=== PATIENT | female | born 1980 | race Caucasian/White ===

== ENCOUNTER 2022-01-31 11:13 | Outpatient (REF) | payer OTHER, SELFPAY ==
--- NOTE | ~2022-01-31 | XR_ITS ---
EXAMINATION: XR SHOULDER, RIGHT CLINICAL INFORMATION: Right shoulder pain COMPARISON: None TECHNIQUE: Right shoulder is imaged in 4 views. FINDINGS: No fracture, dislocation, destructive process. No visible rotator cuff calcifications. The glenohumeral joint appears normal. The acromioclavicular alignment is normal. Right lung apex is clear. XR/XR shoulder RT min 2V IMPRESSION: Normal right shoulder.
== END 2022-01-31 11:14 | disposition home or self-care (01) ==
LOC: HO.XRAY 11:13
PROVIDERS: PCP Nurse Practitioner Family; Visit Provider Internal Medicine Rheumatology
DX: M79.7 Fibromyalgia (principal); G56.03 Carpal tunnel syndrome, bilateral upper limbs; M25.511 Pain in right shoulder; Z96.659 Presence of unspecified artificial knee joint
CPT/HCPCS: 73030; 99212

== ENCOUNTER → 2022-02-20 11:05 | Outpatient (BNVA) | payer OTHER, SELFPAY | PROVIDERS: PCP Internal Medicine Rheumatology; Visit Provider Internal Medicine Rheumatology | DX: M75.81 Other shoulder lesions, right shoulder (principal) | CPT/HCPCS: 20610 ==

== ENCOUNTER 2022-07-10 09:24 | Outpatient (REF) | payer OTHER, SELFPAY ==
[2022-07-10 11:23] LABS: C Reactive Protein 3.32 mg/dL (< or = 0.50)
[2022-07-10 11:26] LABS: Erythrocyte Sedimentation Rate 25 MM/HR (0-20)
[2022-07-10 12:42] LABS: Creatinine Urine 36.48 mg/dL; Total Protein Urine Random < 7 mg/dL (<12)
[2022-07-16 13:37] LABS: Anti DNA DS Antibody 1 IU/mL; SM/Ribonucleoprotein Ab <1.0 NEG AI (<1.0 NEG); Smith Protein <1.0 NEG AI (<1.0 NEG)
== END 2022-07-10 09:25 | disposition home or self-care (01) ==
LOC: HO.10HDL 09:24
PROVIDERS: Visit Provider Internal Medicine Rheumatology
DX: M75.81 Other shoulder lesions, right shoulder (principal); R76.8 Other specified abnormal immunological findings in serum; M79.7 Fibromyalgia; Z96.659 Presence of unspecified artificial knee joint
CPT/HCPCS: 20610; 36415; 84156; 85652; 86140; 86225; 86235; 99212

== ENCOUNTER → 2022-10-30 08:37 | Outpatient (BNVA) | payer OTHER, SELFPAY | PROVIDERS: PCP Nurse Practitioner Family; Visit Provider Internal Medicine Rheumatology | DX: M79.7 Fibromyalgia (principal); M75.81 Other shoulder lesions, right shoulder | CPT/HCPCS: 99212 ==

== ENCOUNTER 2022-11-29 15:05 | Outpatient (REF) | payer OTHER, SELFPAY ==
--- NOTE | ~2022-11-29 | MR_ITS ---
EXAMINATION: MR SHOULDER WITHOUT CONTRAST, RIGHT CLINICAL INFORMATION: M75.81 - Other shoulder lesions, right shoulder. Painful ROM shoulder; not improving with 2 corticosteroid injections COMPARISON: Radiographs dated 01/31/2022 TECHNIQUE: MRI of the shoulder without contrast was performed on a high-field scanner. FINDINGS: ROTATOR CUFF: There is mild supraspinatus and infraspinatus tendinosis characterized by tendon thickening and intermediate signal intensity. No tears. Subscapularis tendon is normal. No muscle atrophy or fatty infiltration. BICEPS: Normal. CORACOACROMIAL ARCH: The undersurface of the acromion is curved with no subacromial spur. The acromioclavicular joint is normal. No bursitis. LABRUM/CAPSULE: There is abnormal linear increased T2 signal in the glenoid labrum posterosuperiorly between the 12 o'clock position and the 10 o'clock position, most concerning for a type II SLAP tear. No biceps tendon involvement. Labrum is otherwise intact. Joint capsule is normal. GLENOHUMERAL JOINT/MARROW: Normal. MR/MR shoulder RT wo con IMPRESSION: 1. Mild supraspinatus and infraspinatus tendinosis. No rotator cuff tears. 2. Probable type II SLAP tear.
== END 2022-11-29 15:06 | disposition home or self-care (01) ==
LOC: HO.MRI 15:05
PROVIDERS: PCP Nurse Practitioner Family; Visit Provider Internal Medicine Rheumatology
DX: M75.81 Other shoulder lesions, right shoulder (principal)
CPT/HCPCS: 73221

== ENCOUNTER → 2022-12-14 11:16 | Outpatient (BNVA) | payer OTHER, SELFPAY | PROVIDERS: PCP Nurse Practitioner Family; Visit Provider Orthopaedic Surgery | DX: S43.431A Superior glenoid labrum lesion of right shoulder, initial encounter (principal); X50.3XXA Overexertion from repetitive movements, initial encounter; Y93.9 Activity, unspecified; Y92.9 Unspecified place or not applicable; Y99.8 Other external cause status; E11.9 Type 2 diabetes mellitus without complications; Z96.651 Presence of right artificial knee joint | CPT/HCPCS: 99212 ==

== ENCOUNTER 2022-12-17 13:34 | Outpatient (REF) | payer OTHER, SELFPAY ==
[2022-12-17 14:10] LABS: Hematocrit 41.4 % (37.0-47.0); Hemoglobin 13.7 g/dl (12.0-16.0); Mean Corpuscular HGB Conc 33.1 g/dl (31.0-35.0); Mean Corpuscular Volume 84.5 fL (80.0-98.0); Mean Platelet Volume 9.3 fL (9.4-12.3); Platelet Count 263 X10*3/uL (160-400); Red Cell Distribution Width 14.9 % (11.0-16.0); White Blood Count 12.3 X10*3/uL (4.8-10.8)
== END 2022-12-17 13:35 | disposition home or self-care (01) ==
LOC: HO.LAB 13:34
PROVIDERS: PCP Nurse Practitioner Family; Visit Provider Psychiatry & Neurology Neurology
DX: M79.7 Fibromyalgia (principal)
CPT/HCPCS: 36415; 85027

== ENCOUNTER → 2023-01-14 12:35 | Outpatient (BNVA) | payer OTHER, SELFPAY | PROVIDERS: PCP Nurse Practitioner Family; Visit Provider Orthopaedic Surgery | DX: Z01.818 Encounter for other preprocedural examination (principal); S43.431A Superior glenoid labrum lesion of right shoulder, initial encounter; E11.9 Type 2 diabetes mellitus without complications; Z96.651 Presence of right artificial knee joint | CPT/HCPCS: 99212 ==

== ENCOUNTER 2023-01-23 06:33 | Day surgery (SDC) | payer OTHER, SELFPAY ==
[2023-01-21 09:04] VITALS: BMI 41.9
[2023-01-21 09:28] VITALS: BMI 41.9
--- NOTE | 2023-01-22 09:27 | P.CONAN_ITS ---
Documented by User: Irena Suarez NP 01/22/23 09:40 HPI - Anesthesia Eval Consult details Narrative: 42yo F for Right shoulder Bicep Tendon Repair - Distal Dilated CMP. Follows [facility] cardiology. Last office eval 06/2022. Cardiac stable. Echo updated 09/2022 with EF 50-55%. [facility] Active Problems Active Problems: All Active Problems (Updated 01/21/23 @ 09:27 by Purnima Monsalve RN) Fibromyalgia (Acute) History of knee replacement, total (Acute) Bilateral carpal tunnel syndrome (Acute) PCOS (polycystic ovarian syndrome) (Acute) Morbid obesity (Acute) Dilated cardiomyopathy (Acute) Right rotator cuff tendonitis (Acute) [place] positive (Acute) SLAP lesion of right shoulder (Acute) History of total right knee replacement (Acute) Past Medical History Medical History (Updated 01/21/23 @ 09:53 by Purnima Monsalve RN) Dilated cardiomyopathy Fibromyalgia PCOS (polycystic ovarian syndrome) Surgical History Surgical History (Updated 01/21/23 @ 09:27 by Purnima Monsalve RN) History of bunionectomy History of carpal tunnel release History of total right knee replacement Hx of section Hx of knee surgery Hx of tonsillectomy Hx of tubal ligation Social History Social History Household Members: Family Housing: House Are you a primary farm or ranch animal caretaker to a significant other at home: No Do you presently have visiting nurse or other home services: No 75 years or older and lives alone: No Alcohol intake: never Patient Tobacco Use Status: Current everyday Tobacco user Tobacco use type: Cigarette Cigarettes Per Day: 15 Years Smoked: 23 e-Cigarette/Vaping Use: Never Used service: No Current occupational status: employed 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 Allergies Allergy/AdvReac Type Severity Reaction Status Date / Time hydrocodone Allergy Severe nausea, Verified 01/23/23 06:51 vomiting, dizziness Home Medications Medication Instructions Recorded Confirmed Last Taken Type carvedilol 6.25 mg tablet 6.25 mg PO BID 01/31/22 01/23/23 01/23/23 05:00 History cetirizine 10 mg tablet (All Day 10 mg PO DAILY 01/31/22 01/23/23 Unknown History Allergy (cetirizine)) duloxetine 60 mg capsule,delayed 60 mg PO DAILY 01/31/22 01/23/23 Unknown History release (Cymbalta) empagliflozin 10 mg tablet 10 mg PO DAILY 01/31/22 01/23/23 Unknown History (Jardiance) ibuprofen 600 mg tablet 600 mg PO Q8H PRN Pain 01/31/22 01/23/23 12/23/22 History medroxyprogesterone 150 mg/mL 150 mg IM [id number] 01/31/22 01/23/23 Unknown History intramuscular suspension (Depo-Provera) metformin 750 mg tablet,extended 750 mg PO BID 01/31/22 01/23/23 Unknown History release 24 hr omeprazole 40 mg capsule,delayed 40 mg PO BID 01/31/22 01/23/23 01/23/23 05:00 History release sacubitril 97 mg-valsartan 103 mg 1 tab PO BID 01/31/22 01/23/23 01/23/23 05:00 History tablet (Entresto) spironolactone 100 mg tablet 100 mg PO DAILY 01/31/22 01/23/23 Unknown History tizanidine 4 mg tablet 4 mg PO Q8H PRN Muscle Spasm 01/31/22 01/23/23 Unknown History trazodone 50 mg tablet 25 mg PO BEDTIME 01/31/22 01/23/23 Unknown History rosuvastatin 5 mg tablet 10 mg PO DAILY 02/20/22 01/23/23 Unknown History furosemide 40 mg tablet 60 mg PO DAILY 07/10/22 01/23/23 Unknown History Exam Exam Date and Time: January 22, 2023 0927 Height,Weight and Vital Signs: Height 5 ft 2 in Weight 103.873 kg Pertinent Lab Results Pertinent Lab Results: Laboratory Tests 12/17/22 13:43 WBC 12.3 H Hgb 13.7 Hct 41.4 Plt Count 263 Narrative Narrative: ECHO 09/2022 LV nml in size, wall thickness and systolic function EF 50-55%. No definitive WMA. Nml diastolic function. RV is nml in size and function PASP wnl. EKG 10/2021 ST @ 106 otherwise nml Assessment and Plan Assessment Anesthesia Assessment: Chart Reviewed Documented by User: Sathish Spicer MD 01/23/23 15:02 [facility] Past Medical History Medical History (Updated 01/21/23 @ 09:53 by Purnima Monsalve RN) Dilated cardiomyopathy Fibromyalgia PCOS (polycystic ovarian syndrome) Functional capacity: independent ambulation Family History Family history of problems with anesthesia: Yes (aunt has problems with anesthesia, patient not sure about exact problem ) Surgical History Surgical History (Updated 01/21/23 @ 09:27 by Purnima Monsalve RN) History of bunionectomy History of carpal tunnel release History of total right knee replacement Hx of section Hx of knee surgery Hx of tonsillectomy Hx of tubal ligation History of Problems with Anesthesia: No Social History Social History Household Members: Family Housing: House Are you a primary farm or ranch animal caretaker to a significant other at home: No Do you presently have visiting nurse or other home services: No 75 years or older and lives alone: No Alcohol intake: never Patient Tobacco Use Status: Current everyday Tobacco user Tobacco use type: Cigarette Cigarettes Per Day: 15 Years Smoked: 23 e-Cigarette/Vaping Use: Never Used service: No Current occupational status: employed 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 Allergies Allergy/AdvReac Type Severity Reaction Status Date / Time hydrocodone Allergy Severe nausea, Verified 01/23/23 06:51 vomiting, dizziness Home Medications Medication Instructions Recorded Confirmed Last Taken Type carvedilol 6.25 mg tablet 6.25 mg PO BID 01/31/22 01/23/23 01/23/23 05:00 History cetirizine 10 mg tablet (All Day 10 mg PO DAILY 01/31/22 01/23/23 Unknown History Allergy (cetirizine)) duloxetine 60 mg capsule,delayed 60 mg PO DAILY 01/31/22 01/23/23 Unknown History release (Cymbalta) empagliflozin 10 mg tablet 10 mg PO DAILY 01/31/22 01/23/23 Unknown History (Jardiance) ibuprofen 600 mg tablet 600 mg PO Q8H PRN Pain 01/31/22 01/23/23 12/23/22 History medroxyprogesterone 150 mg/mL 150 mg IM [id number] 01/31/22 01/23/23 Unknown History intramuscular suspension (Depo-Provera) metformin 750 mg tablet,extended 750 mg PO BID 01/31/22 01/23/23 Unknown History release 24 hr omeprazole 40 mg capsule,delayed 40 mg PO BID 01/31/22 01/23/23 01/23/23 05:00 History release sacubitril 97 mg-valsartan 103 mg 1 tab PO BID 01/31/22 01/23/23 01/23/23 05:00 History tablet (Entresto) spironolactone 100 mg tablet 100 mg PO DAILY 01/31/22 01/23/23 Unknown History tizanidine 4 mg tablet 4 mg PO Q8H PRN Muscle Spasm 01/31/22 01/23/23 Unknown History trazodone 50 mg tablet 25 mg PO BEDTIME 01/31/22 01/23/23 Unknown History rosuvastatin 5 mg tablet 10 mg PO DAILY 02/20/22 01/23/23 Unknown History furosemide 40 mg tablet 60 mg PO DAILY 07/10/22 01/23/23 Unknown History Exam Airway Mallampati Class: IV Neck ROM: Full Loose/Missing/Broken Teeth: Yes Assessment and Plan Assessment Anesthesia Assessment: Anesthesia Plan Discussed Final Anesthetic Review Family History of Problems with Anesthesia: Yes (aunt has problems with anesthesia, patient not sure about exact problem ) History of Problems with Anesthesia: No ASA Class: III Final Preanesthetic Review: Meds/Allgs Chart Reviewed, Consent Obtained/Reviewed and Anes Risks/Benef Reviewed Patient Risk: Intermediate Procedure Risk: Intermediate Anesthetic Plan Anesthetic Plan: GA, Regional Block and Agree w/ Assess. and Plan Disposition: Standard PACU
[2023-01-23] VITALS (11 sets, daily range): BP systolic 101–122; BP diastolic 61–82; PULSE 70–83; RESP 16–30; TEMP 36.1–36.6; O2SAT 93–98
[2023-01-23] MEDS: Lactated Ringers 1,000 ML 50 ML IVCONT (07:12)
--- NOTE | 2023-01-23 07:34 | MHC.SHP ---
Pre-Procedural Eval Section A Date of Service: 01/23/23 The patient is an INPATIENT: No Changes since office visit: No Cold of Flu in the past 2 weeks, No New Medical Problems, No Changes in Medication and No Patient answered all questions The History & Physical has been completed within 30 days and I have reviewed it.: Yes Section B Chief Complaint: Superior glenoid labrum lesion of right shoulder, Allergies: Allergies Allergy/AdvReac Type Severity Reaction Status Date / Time hydrocodone Allergy Severe nausea, Verified 01/23/23 06:51 vomiting, dizziness Plan I have reviewed the history and physical and performed a pertinent physical examination on my patient. No changes have occurred unless specified. Time Spent With Patient Time: Total time managing care of this patient today ____ minutes.
--- NOTE | 2023-01-23 10:11 | PM.OP ---
Brief Operative Note Date of Service: 01/23/23 Pre-op diagnosis: right SLAP tear Post-op diagnosis: other (Right rtc tear and right SLAP tear) Procedure: Right RTC repair and Biceps tenodesis ( sub-pectoral) Implants: Sinclair and Nephew suture anchor x 2 Arthrex tenodesis button Surgeon: Allan Bueno MD Anesthesia: GETA and regional Was an Rehabilitation Services Aide used for this Procedure?: Yes Rehabilitation Services Aide: Mckenzie Johnston Estimated blood loss (mL): 50 IV fluids (mL): 1,000 Pathology: none sent Condition: stable Disposition: PACU
[2023-01-23] MEDS: HYDROmorphone HCl 0.5 MG/0.5 ML SYRINGE 0.25 MG IVPUSH ×2 (10:39→11:02)
--- NOTE | 2023-01-27 09:57 | P.OP_ITS ---
Operative Note Operative Note Date of Service: 01/23/23 Narrative: Date of Service: 01/23/23 Pre-op diagnosis: right SLAP tear Post-op diagnosis: other (Right rtc tear and right SLAP tear) Procedure: Right RTC repair and Biceps tenodesis ( sub-pectoral) Implants: Sinclair and Nephew suture anchor x 2 Arthrex tenodesis button Surgeon: Allan Bueno MD Anesthesia: GETA and regional Was an Real Estate Appraiser used for this Procedure?: Yes Real Estate Appraiser: Mckenzie Johnston Estimated blood loss (mL): 50 IV fluids (mL): 1,000 Pathology: none sent Condition: stable Disposition: PACU Procedure in detail: Patient was brought to the operating room and placed the the beach chair position. All bony prominences were well padded and the limb was prepped and draped in standard sterile fashion. A time out was called to identify proper site, proper procedure and proper surgeon. IV antibiotics per weight were administered. I began by making a posterolateral stab incision with a 15 blade. A blunt trochar was placed into the glenohumeral joint and I insufflated the joint with saline and a 30 degree arthroscope was placed. I established an outside- in anterior portal just distal to the biceps tendon. I then began my inspection of the glenohumeral joint. There was a type 2 SLAP. The labral anchor was torn without associated degenerative tearing of the labrum anteriorly or posterioly. There were no cartilage changes of the head or glenoid. There was a high grade undersurface tear of the supraspinatus. The subcapularis was intact. I debrided the superior aspect of the glenoid rim under the SLAP tear and tagged and tenotomized the biceps. I then removed the trochar and entered the subacromial space. A direct lateral portal was then established and I performed a bursectomy. The cuff was then examined. There was a high grade bursal tear of the supraspinatus overlying the high grade undersurface tear which had been marked iwth a spinal needle. I then debrided this tissue with a shaver over what was essentially a full thickness tear ( approxiomately 10-20% nl tissue remained. Once a full thickness cuff of tissue was present I placed one medial row double loaded anchor and brought this through the healthy cuff tissue. I then passed these sutures through the torn cuff with a suture passer. The bone bed was debrided down to bleeding bone with a cristofer and I brought all four limbs limbs to one lateral 5.5 anchor. This re- approximated the cuff anatomy near anatomically. Once I was satisfied with the repair final images were captured and I removed all instrumentation. Portals were closed with nylon. Patient was placed in an abduction sling, extubated and brought to the recovery room in stable condition. There were no known complications.
== END 2023-01-23 11:57 | disposition home or self-care (01) ==
PROVIDERS: PCP Nurse Practitioner Family; Visit Provider Orthopaedic Surgery
PROC: (CPT 24341; principal; 2023-01-23 08:40)
DX: S43.431A Superior glenoid labrum lesion of right shoulder, initial encounter (principal); M75.101 Unspecified rotator cuff tear or rupture of right shoulder, not specified as traumatic; X58.XXXA Exposure to other specified factors, initial encounter; Y93.9 Activity, unspecified; Y92.9 Unspecified place or not applicable; Y99.8 Other external cause status; Z88.8 Allergy status to other drugs, medicaments and biological substances; E11.9 Type 2 diabetes mellitus without complications; I42.0 Dilated cardiomyopathy; M79.7 Fibromyalgia; E66.01 Morbid (severe) obesity due to excess calories; Z68.41 Body mass index [BMI] 40.0-44.9, adult; Z96.651 Presence of right artificial knee joint; Z79.84 Long term (current) use of oral hypoglycemic drugs; Z79.899 Other long term (current) drug therapy; F17.210 Nicotine dependence, cigarettes, uncomplicated
CPT/HCPCS: 29827; 29828; C1713; J0171; J0690; J1100; J1170; J2250; J2405; J2550; J3010

== ENCOUNTER → 2023-01-28 09:32 | Outpatient (BNVA) | payer OTHER, SELFPAY | PROVIDERS: PCP Nurse Practitioner Family; Visit Provider Physician Assistant | DX: S43.431D Superior glenoid labrum lesion of right shoulder, subsequent encounter (principal); E11.9 Type 2 diabetes mellitus without complications; Z96.651 Presence of right artificial knee joint | CPT/HCPCS: 99212 ==

== ENCOUNTER 2023-02-28 10:32 | Outpatient (AMB) | payer OTHER, SELFPAY ==
--- NOTE | 2023-02-28 10:45 | A.OFFVIS_ITS ---
Intake Vital Signs 02/28/23 10:47 Height 5 ft 2 in Weight 224 lb BMI 41.0 Intake Visit Reasons: PO - Right RTC Repair 01/23/23 Intake Note: Renetta is a 42 year old female who presents today for a post operative appointment for s/p Right shoulder tendon repair from [facility] 01/23/23. Patient reports that she is doing well, she has no concerns. She is still working with physical therapy which is going well. Allergies hydrocodone Allergy (Severe, Verified 01/28/23 09:42) nausea, vomiting, dizziness HPI PO - Right RTC Repair 01/23/23 HPI Details Renetta is a 42 year old woman who presents ~5 weeks S/P right RTC repair, with biceps tenodesis. She says she is doing well and continues to work with PT. She complains of having some muscle spasms in her shoulder She is happy to be discontinuing her sling today. [facility] Medical History Dilated cardiomyopathy Fibromyalgia PCOS (polycystic ovarian syndrome) Surgical History History of bunionectomy History of carpal tunnel release History of total right knee replacement Hx of section Hx of knee surgery Hx of tonsillectomy Hx of tubal ligation Social History Household Members: Family Housing: House Are you a primary field care coordinator to a significant other at home: No Do you presently have visiting nurse or other home services: No 75 years or older and lives alone: No Alcohol intake: never Patient Tobacco Use Status: Current everyday Tobacco user Tobacco use type: Cigarette Cigarettes Per Day: 15 Years Smoked: 23 e-Cigarette/Vaping Use: Never Used service: No Current occupational status: employed Current occupation: Home health aide Review of Systems Const All systems reviewed & are unremarkable except as noted in HPI and below Physical Exam Vital Signs: BMI result Body Mass Index 41.0 Const General: no acute distress and alert Orientation/consciousness: patient oriented x3 Neuro General: patient oriented x3 Extrem Other: Right Shoulder: Well-healed portals Active AB limited Passive ROM nearly full Psych Appearance: grossly normal Affect: normal affect Attitude: cooperative Assessment & Plan Assessment & Plan (1) Status post right rotator cuff repair: Code(s): Z98.890 - Other specified postprocedural states Plan: This is a 42 year old woman S/P right RTC repair with biceps tenodesis, DOS: 01/23/23. She is doing well and continues to work with PT. I recommend she continue with PT and at-home exercises, and avoid any lifting activities. She will follow up in 6 weeks. Plan Scribed for Allan Bueno MD by [place] Tracey medical office technician, on 02/28/23 at 10:55 AM, EST. Coding Level of Care Code Global (66658) Diagnoses Status post right rotator cuff repair Z98.890
[2023-02-28 10:47] VITALS: BMI 41.0
== END 2023-02-28 10:59 | disposition home or self-care (01) ==
PROVIDERS: PCP Nurse Practitioner Family; Visit Provider Orthopaedic Surgery
DX: Z98.890 Other specified postprocedural states (principal)
CPT/HCPCS: 99024

== ENCOUNTER → 2023-02-28 10:32 | Outpatient (BNVA) | payer OTHER, SELFPAY | PROVIDERS: PCP Nurse Practitioner Family; Visit Provider Orthopaedic Surgery ==

== ENCOUNTER 2023-04-11 08:51 | Outpatient (AMB) | payer OTHER, SELFPAY ==
--- NOTE | 2023-04-11 08:55 | A.OFFVIS_ITS ---
Intake Vital Signs 04/11/23 08:56 Height 5 ft 2 in Weight 224 lb BMI 41.0 Intake Visit Reasons: PO - Right RTC Repair 01/23/23 Intake Note: Renetta is a 42 year old female who presents today for a post operative appointment for s/p Right shoulder tendon repair from [facility] 01/23/23. At her last visit she was instructed to continue PT and home exercise program with no lifting. She reports that she is doing well with no concerns and would like to return to work. Allergies hydrocodone Allergy (Severe, Verified 01/28/23 09:42) nausea, vomiting, dizziness HPI PO - Right RTC Repair 01/23/23 HPI Details Renetta is a 42 year old woman who presents ~2 1/2 months S/P right RTC repair, with biceps tenodesis. She says she is doing well and continues to work with PT.?She feels she is ready to return to work at this point. She says she does not perform heavy lifting activities at her job. [facility] Medical History Dilated cardiomyopathy Fibromyalgia PCOS (polycystic ovarian syndrome) Surgical History History of bunionectomy History of carpal tunnel release History of total right knee replacement Hx of section Hx of knee surgery Hx of tonsillectomy Hx of tubal ligation Social History Household Members: Family Housing: House Are you a primary daycare worker to a significant other at home: No Do you presently have visiting nurse or other home services: No 75 years or older and lives alone: No Alcohol intake: never Patient Tobacco Use Status: Current everyday Tobacco user Tobacco use type: Cigarette Cigarettes Per Day: 15 Years Smoked: 23 e-Cigarette/Vaping Use: Never Used service: No Current occupational status: employed Current occupation: Home health aide Review of Systems Const All systems reviewed & are unremarkable except as noted in HPI and below Physical Exam Vital Signs: BMI result Body Mass Index 41.0 Const General: no acute distress and alert Orientation/consciousness: patient oriented x3 HEENT Head: Yes normocephalic and Yes atraumatic Eyes EOM: EOMs intact bilaterally Resp Effort & Inspection: normal respiratory effort and able to speak in complete sentences Cardio Jugular venous distension: no JVD Skin General skin exam: turgor normal Rashes: no rashes Neuro General: patient oriented x3 Extrem Other: Right Shoulder: Well-healed portals Full ROM No pain Psych Appearance: grossly normal Affect: normal affect Attitude: cooperative Assessment & Plan Assessment & Plan (1) Status post right rotator cuff repair: Code(s): Z98.890 - Other specified postprocedural states Plan: This is a 42 year old woman S/P right RTC repair with biceps tenodesis, DOS: 01/23/23. She is doing well and continues to work with PT & perform at-home exercises. She has no complaints today and is happy with her recovery. I recommend she continue activities as tolerated, being mindful to not push through pain and minimize or avoid any heavy overhead activity or lifting. She was given a note for work to return to full duty without restrictions on 04/15/23. She can follow up prn Plan Scribed for Allan Bueno MD by [place] Tracey medical records library professor, on 04/11/23 at 9:20 AM, EST. Coding Level of Care Code Global (54788) Diagnoses Status post right rotator cuff repair Z98.890
[2023-04-11 08:56] VITALS: BMI 41.0
== END 2023-04-11 09:24 | disposition home or self-care (01) ==
PROVIDERS: PCP Nurse Practitioner Family; Visit Provider Orthopaedic Surgery
DX: Z98.890 Other specified postprocedural states (principal)
CPT/HCPCS: 99024

== ENCOUNTER → 2023-04-11 08:51 | Outpatient (BNVA) | payer OTHER, SELFPAY | PROVIDERS: PCP Nurse Practitioner Family; Visit Provider Orthopaedic Surgery ==